=== PATIENT | male | born 1980 | race Two or more races ===

== ENCOUNTER 2020-07-13 18:32 | Emergency (ER) | payer OTHER ==
[~2020-07-13] VITALS: Ht 165.1 cm; Wt 86.2 kg
[2020-07-13] MEDS ORDERED: MUCINEX DM ER1 EAC1 PO (22:12)
[2020-07-13] MEDS ORDERED: ACETAMINOPHEN650 M2 PO (22:12)
[2020-07-13] MEDS ORDERED: VITAMIN C WIT1000 MG PO (22:12)
== END 2020-07-13 22:05 | disposition home or self-care (01) ==
LOC: ER 18:32
DX: J06.9 Acute upper respiratory infection, unspecified (principal); B34.9 Viral infection, unspecified; Z03.818 Encounter for observation for suspected exposure to other biological agents ruled out

== ENCOUNTER 2024-01-14 15:54 | Emergency (ER) | payer OTHER ==
[~2024-01-14] VITALS: Ht 165.1 cm; Wt 91.2 kg
[~2024-01-14 15:54] MED LIST: ACETAMINOPHEN650 M2 PO; COZAAR50 MG PO; MUCINEX DM ER1 EAC1 PO; VITAMIN C WIT1000 MG PO
[2024-01-14] MEDS ORDERED: KETOROLAC TROMETHAMINE 30 MG VIAL IM STA (19:22)
[2024-01-14] MEDS ORDERED: FAMOTIDINE/PF 20 MG/2 ML VIAL IV PUSH STA (19:22)
[2024-01-14 20:15] LABS: HEMATOCRIT 42.6 % (39.0-48.0); HEMOGLOBIN 15.1 g/dL (13-16.00); MEAN CELL VOLUME 86.2 fL (80.0-100.00); MEAN CORPUSCULAR HEMOGLOBIN 30.5 pg (27.00-32.0); MEAN CORPUSCULAR HGB CONC 35.4 g/dl (32.0-36.0); PLATELET COUNT 237 K/uL (150-450); RED BLOOD COUNT 4.94 M/uL (4.00-6.00); RED CELL DISTRIBUTION WIDTH 12.7 % (11.5-14.5)
[2024-01-14 20:45] LABS: ALBUMIN 4.6 gm/dL (3.4-5.0); BILIRUBIN TOTAL 0.69 mg/dL (0.3-1.2); CALCIUM 9.8 mg/dL (8.5-10.1); CREATININE SERUM 0.84 mg/dL (0.70-1.30); GFR 100.21; GLOBULINA 3.5 G/DL (2.4-3.5); POTASSIUM 4.26 mEq/L (3.5-5.1); TOTAL PROTEIN 8.1 gm/dL (6.4-8.2)
[2024-01-14] MEDS ORDERED: IBU800 MG PO (21:27)
[2024-01-14] MEDS ORDERED: GUMSOL SPRAY30 ML PO (21:27)
[2024-01-14] MEDS ORDERED: PEPCID AC20 MG PO (21:27)
== END 2024-01-14 21:33 | disposition home or self-care (01) ==
LOC: ER 15:54
PROVIDERS: General Practice
DX: R53.81 Other malaise (principal); M94.0 Chondrocostal junction syndrome [Tietze]; I10 Essential (primary) hypertension

== ENCOUNTER 2024-08-08 14:25 | Emergency (ER) | payer OTHER ==
[~2024-08-08] VITALS: Ht 165.1 cm; Wt 88.0 kg
[~2024-08-08 14:25] MED LIST changes: +GUMSOL SPRAY30 ML PO; +IBU800 MG PO; +PEPCID AC20 MG PO
[2024-08-08] MEDS ORDERED: cloNIDine HCL 0.2 MG TABLET PO STA (17:14)
[2024-08-08] MEDS ORDERED: CLONIDINE HCL 0.1 MG TABLET PO ONE (17:30)
[2024-08-08 17:35] LABS: HEMOGLOBIN 15.2 g/dL (13-16.00); MEAN CELL VOLUME 84.3 fL (80.0-100.00); MEAN CORPUSCULAR HEMOGLOBIN 29.8 pg (27.00-32.0); MEAN CORPUSCULAR HGB CONC 35.3 g/dl (32.0-36.0); PLATELET COUNT 254 K/uL (150-450); RED CELL DISTRIBUTION WIDTH 12.5 % (11.5-14.5)
[2024-08-08 17:53] LABS: URINE APPEARANCE Cloudy; URINE BILIRRUBIN Negative (NEGATIVE); URINE BLOOD Negative; URINE COLOR Yellow; URINE GLUCOSE Negative (NEGATIVE); URINE KETONE Trace (NEGATIVE); URINE LEUKOCYTE Negative; URINE NITRATE Negative; URINE PROTEIN Negative (NEGATIVE); URINE UROBILINOGEN 0.2 E.U./dl
[2024-08-08 17:57] LABS: URINE BACTERIA 29.3 uL (0.0-1933); URINE EPITHELIAL CELLS 6.4 uL (0.0-38.8); URINE RBC 5.8 uL (0.0-20.8); URINE WBC 32.1 uL (0.0-23.2)
[2024-08-08 17:59] LABS: URINE CAST 0.44 uL (0.0-1.40)
[2024-08-08 18:06] LABS: CALCIUM 9.6 mg/dL (8.5-10.1); CREATININE SERUM 0.79 mg/dL (0.70-1.30); GFR 107.05; POTASSIUM 4.21 mEq/L (3.5-5.1)
== END 2024-08-08 20:31 | disposition home or self-care (01) ==
LOC: ER 14:27
PROVIDERS: General Practice
DX: R53.81 Other malaise (principal); I10 Essential (primary) hypertension